=== PATIENT | female | born 1960 | race Caucasian/White ===

== ENCOUNTER 2016-11-30 22:20 | Emergency (ER) | payer SELFPAY ==
--- NOTE | 2016-12-01 00:13 | ED NURSING NOTES ---
Clinical Report - Nurses [facility] [address] [place] [address] 11/30/2016 22:34 Patient: CAROLINA KULKARNI TRIAGE Triage time 22:32 Nov 30 2016. Acuity: LEVEL 4. Chief Complaint: FALL while walking. 22:36 11/30/16. Alert. No acute distress. SEPSIS SCREEN: Sepsis Screen. Negative (no infection suspected/documented). SHERRI COMA SCORE: Sherri Coma Scale: 15- eyes open spontaneously (4); best verbal response- oriented x 4 (5); best motor response- obeys commands (6). --22:36 Susy Lopez 22:36 11/30/16. BP: 115/86. HR: 91. RR: 18. O2 saturation: 95%. Temp: 97.8 F. Pain level now 0/10. --22:36 Susy Lopez. Weight: 57.1 kg stated. Height/Length: 66 inches Per Patient. BMI: 20.3. --22:34 Susy Lopez. Medications ALPRAZolam Oral. --22:35 Susy Lopez Levothyroxine Sodium Oral. --22:35 Susy Lopez. Medication/allergy information source: EMS. --22:36 Susy Lopez. Allergies None. --22:35 Susy Lopez. History Arrived by EMS. Historian: EMS and patient. Unaccompanied. Location of injuries: head. This occurred just prior to arrival. ( Pt stumbled and fell, hit head.). The patient has had trouble walking. No loss of consciousness. No alteration in mental status, dizziness, neck pain, extremity pain or back pain. No limited ROM present or difficulty breathing. Treatment STABLE CLEANER: See EMS report. EMS treatment STABLE CLEANER verbally communicated. Hard c-collar applied. Trauma activation: Pre-hospital notification of patient arrival was received. PAST MEDICAL HX: Tetanus status: up-to-date. Immunizations: up-to-date. SOCIAL HX: Heavy tobacco smoker (cigarette)- 1-2 packs per day. Alcohol use; consumes three beers a week. No drug use. NUTRITIONAL RISK ASSESSMENT: The nutritional risk assessment revealed no deficiencies. FUNCTIONAL ASSESSMENT: Functional assessment: no impairments noted. LEARNING NEEDS ASSESSMENT: The learning needs assessment revealed no barriers. FALL RISK ASSESSMENT: Fall risk assessment completed. Risk factors identified include patient history of fall. Fall interventions initiated. Patient placed on stretcher. Side rails up x2. Call light in reach of patient. Instructed not to get up without assistance. SKIN INTEGRITY ASSESSMENT: Skin integrity risk assessment completed. No skin integrity risk identified. --22:36 Susy Lopez. PROBLEMS: Hypothyroidism. Anxiety Reaction. --22:36 Susy Lopez. Assessment The patient states feels the same. --22:36 Susy Lopez. Interventions ID band on patient. --22:36 Susy Lopez. PHYSICAL ASSESSMENT 22:37 11/30/16. To room via stretcher. GENERAL / NEURO / PSYCH: Alert. Oriented X 4. Appears in no acute distress. HEENT: Pupils equal, round and reactive to light. Head non-tender. RESPIRATORY: Respirations not labored. Chest nontender. CVS: Pulses within normal limits. Capillary refill less than 2 seconds. GI / : Abdomen soft and nontender. EXTREMITIES: Extremities exhibit normal ROM. Neuro-vascular status intact to the extremity. SKIN: Skin intact. Skin is warm and dry. --22:37 Susy Lopez. NURSING PROGRESS NOTES 22:37 11/30/16. The plan of care for this patient has been created. C-collar applied. Reassurance given. Two patient identifiers checked. Call light placed in reach. Side rails up x 1. Bed placed in lowest position. Brakes of bed on. Patient ready for evaluation- chart flagged and ED physician notified. --22:37 Susy Lopez 22:47 11/30/16. Care transferred and report given (MISSY Brar). --22:47 Susy Lopez Wound cleansed with sterile water (7124). --23:55 Yumiko Kerr. DISPOSITION / DISCHARGE Condition at departure: improved. No learning barriers present. Discharge instructions provided and reviewed with the patient and spouse and the patient left prior to discharge education being provided. Treatments reviewed. Reviewed referral to a primary care physician for followup. Patient verbalized understanding. Written instructions provided in Slovak. The patient was discharged home and accompanied by spouse. She left the Emergency Department ambulatory and via private vehicle. Spouse driving. --00:28 Riley Billings R.N. 00:26 12/01/16. BP: 117/78. HR: 79. RR: 16. O2 saturation: 100%. Temp: deferred. Pain level now: 0/10. --00:28 Riley Billings R.N. Locked/Released at 12/01/2016 0:29 by Riley Billings R.N.
--- NOTE | 2016-12-01 00:13 | ED ORDER SUMMARY ---
..... Patient: CAROLINA KULKARNI OrderSheet [facility] VisitID: [id number] [address] [place] [address] 56y, F Registration Date/Time: 11/30/2016 ORDER SHEET Weight: 57.1 kg (stated) Allergies: None GENERAL ORDERS: Cervical Spine 2 or 3V Urgent (23:12 11/30/2016 Ann ANAND) (Ack 23:23 Andres) (0:05 RFay) - (clean wound and remove hair to fully visualize.) (23:17 11/30/2016 Ann ANAND) (Ack 23:35 Andres) (23:54 Lawekcarlos) MEDICATION ORDERS: IV FLUIDS: ORDER SHEET NOTES: [Electronically signed by Riley Billings R.N. (00:29 12/01/2016)] [Electronically signed by Naga Goetz MD (11:03 12/13/2016)] [Electronically locked/signed by Riley Billings R.N. (00:29 12/01/2016)]
--- NOTE | 2016-12-01 00:13 | ED NURSING NOTES ---
Clinical Report - Nurses [facility] [address] [place] [address] 11/30/2016 22:34 Patient: CAROLINA KULKARNI TRIAGE Triage time 22:32 Nov 30 2016. Acuity: LEVEL 4. Chief Complaint: FALL while walking. 22:36 11/30/16. Alert. No acute distress. SEPSIS SCREEN: Sepsis Screen. Negative (no infection suspected/documented). SHERRI COMA SCORE: Sherri Coma Scale: 15- eyes open spontaneously (4); best verbal response- oriented x 4 (5); best motor response- obeys commands (6). --22:36 Susy Lopez 22:36 11/30/16. BP: 115/86. HR: 91. RR: 18. O2 saturation: 95%. Temp: 97.8 F. Pain level now 0/10. --22:36 Susy Lopez. Weight: 57.1 kg stated. Height/Length: 66 inches Per Patient. BMI: 20.3. --22:34 Susy Lopez. Medications ALPRAZolam Oral. --22:35 Susy Lopez Levothyroxine Sodium Oral. --22:35 Susy Lopez. Medication/allergy information source: EMS. --22:36 Susy Lopez. Allergies None. --22:35 Susy Lopez. History Arrived by EMS. Historian: EMS and patient. Unaccompanied. Location of injuries: head. This occurred just prior to arrival. ( Pt stumbled and fell, hit head.). The patient has had trouble walking. No loss of consciousness. No alteration in mental status, dizziness, neck pain, extremity pain or back pain. No limited ROM present or difficulty breathing. Treatment ENVIRONMENTAL SERVICES MANAGER: See EMS report. EMS treatment ENVIRONMENTAL SERVICES MANAGER verbally communicated. Hard c-collar applied. Trauma activation: Pre-hospital notification of patient arrival was received. PAST MEDICAL HX: Tetanus status: up-to-date. Immunizations: up-to-date. SOCIAL HX: Heavy tobacco smoker (cigarette)- 1-2 packs per day. Alcohol use; consumes three beers a week. No drug use. NUTRITIONAL RISK ASSESSMENT: The nutritional risk assessment revealed no deficiencies. FUNCTIONAL ASSESSMENT: Functional assessment: no impairments noted. LEARNING NEEDS ASSESSMENT: The learning needs assessment revealed no barriers. FALL RISK ASSESSMENT: Fall risk assessment completed. Risk factors identified include patient history of fall. Fall interventions initiated. Patient placed on stretcher. Side rails up x2. Call light in reach of patient. Instructed not to get up without assistance. SKIN INTEGRITY ASSESSMENT: Skin integrity risk assessment completed. No skin integrity risk identified. --22:36 Susy Lopez. PROBLEMS: Hypothyroidism. Anxiety Reaction. --22:36 Susy Lopez. Assessment The patient states feels the same. --22:36 Susy Lopez. Interventions ID band on patient. --22:36 Susy Lopez. PHYSICAL ASSESSMENT 22:37 11/30/16. To room via stretcher. GENERAL / NEURO / PSYCH: Alert. Oriented X 4. Appears in no acute distress. HEENT: Pupils equal, round and reactive to light. Head non-tender. RESPIRATORY: Respirations not labored. Chest nontender. CVS: Pulses within normal limits. Capillary refill less than 2 seconds. GI / : Abdomen soft and nontender. EXTREMITIES: Extremities exhibit normal ROM. Neuro-vascular status intact to the extremity. SKIN: Skin intact. Skin is warm and dry. --22:37 Susy Lopez. NURSING PROGRESS NOTES 22:37 11/30/16. The plan of care for this patient has been created. C-collar applied. Reassurance given. Two patient identifiers checked. Call light placed in reach. Side rails up x 1. Bed placed in lowest position. Brakes of bed on. Patient ready for evaluation- chart flagged and ED physician notified. --22:37 Susy Lopez 22:47 11/30/16. Care transferred and report given (MISSY Brar). --22:47 Susy Lopez Wound cleansed with sterile water (0418). --23:55 Yumiko Kerr. DISPOSITION / DISCHARGE Condition at departure: improved. No learning barriers present. Discharge instructions provided and reviewed with the patient and spouse and the patient left prior to discharge education being provided. Treatments reviewed. Reviewed referral to a primary care physician for followup. Patient verbalized understanding. Written instructions provided in Tunisian. The patient was discharged home and accompanied by spouse. She left the Emergency Department ambulatory and via private vehicle. Spouse driving. --00:28 Riley Billings R.N. 00:26 12/01/16. BP: 117/78. HR: 79. RR: 16. O2 saturation: 100%. Temp: deferred. Pain level now: 0/10. --00:28 Riley Billings R.N. Locked/Released at 12/01/2016 0:29 by Riley Billings R.N.
--- NOTE | 2016-12-01 00:13 | ED ORDER SUMMARY ---
..... Patient: CAROLINA KULKARNI OrderSheet [facility] VisitID: [id number] [address] [place] [address] 56y, F Registration Date/Time: 11/30/2016 ORDER SHEET Weight: 57.1 kg (stated) Allergies: None GENERAL ORDERS: Cervical Spine 2 or 3V Urgent (23:12 11/30/2016 Ann ANAND) (Ack 23:23 Andres) (0:05 RFay) - (clean wound and remove hair to fully visualize.) (23:17 11/30/2016 Ann ANAND) (Ack 23:35 Andres) (23:54 Lawekcarlos) MEDICATION ORDERS: IV FLUIDS: ORDER SHEET NOTES: [Electronically signed by Riley Billings R.N. (00:29 12/01/2016)] [Electronically signed by Naga Goetz MD (11:03 12/13/2016)] [Electronically locked/signed by Riley Billings R.N. (00:29 12/01/2016)]
--- NOTE | 2016-12-01 00:13 | ED CLINICAL REPORT ---
Clinical Report - Physicians/Mid Levels [facility] [address] [place] [place] [address] 11/30/2016 22:34 [id number] Time Seen: 22:47 Nov 30 2016. Arrived- By private vehicle. Historian- patient. HISTORY OF PRESENT ILLNESS Location of injuries- head. Chief Complaint: INJURY TO HEAD. The injury occurred just prior to arrival. Fell. Occurred at home. ( This occurred just prior to arrival. ( Pt stumbled and fell, hit head.). Has been drinking alcohol.). The patient complains of mild pain. The patient sustained a blow to the head. No neck pain or loss of consciousness. Not dazed. REVIEW OF SYSTEMS No numbness, loss of vision, chest pain, difficulty breathing or weakness. No headache, nausea, abdominal pain, fever or vomiting. She sustained skin laceration but has no pain on weight bearing. All systems otherwise negative, except as recorded above. PAST HISTORY See nurses notes. Medications: Levothyroxine Sodium Oral. ALPRAZolam Oral. Allergies: None. SOCIAL HISTORY Heavy tobacco smoker (cigarette)- 1-2 packs per day. Regular alcohol use. No drug use. ADDITIONAL NOTES The nursing notes have been reviewed. PHYSICAL EXAM Vital Signs: 11/30/2016 22:36 BP: 115/86. HR: 91. RR: 18. O2 saturation: 95%. Temp: 97.8 F. Appearance: Alert. No acute distress. Head: Vertex: abrasion, mild tenderness and swelling and subcutaneous laceration of the posterior aspect of the vertex. SEE LACERATION PROCEDURE NOTE. No deformity. Eyes: Pupils equal, round and reactive to light. EOM intact. ENT: No dental injury. Pharynx normal. Neck: Painless ROM. Non-tender. CVS: Heart sounds normal. Pulses normal. Respiratory: Breath sounds normal. Chest nontender. Abdomen: No visible injury. Soft and nontender. Back: No tenderness. ROM normal. Skin: Skin warm. Normal skin color. Extremities: Normal inspection. Extremities atraumatic. Neuro: Oriented X 3. No motor deficit. No sensory deficit. Reflexes normal. LABS, X-RAYS, AND EKG C-Spine X-rays: No acute findings. (DJD , no fx seen.). Views: 3 view C-spine series. Technique: good. The X-rays were independently viewed by me and interpreted contemporaneously by me. PROGRESS AND PROCEDURES Laceration Repair: Location: scalp. Length: 3 cm. Complexity: simple (local anesthesia used and stapled). Wound depth/shape- subcutaneous and linear. Wound is clean. Distal neuro/vascular/tendon status normal. Local anesthesia provided using 2% lidocaine with epi. Prepped with Hibiclens. Wound explored, cleansed and examined to the base in bloodless field extensively with normal saline. Closure of skin: (5 jesus manuel). Post-procedure: she is stable and there are no complications. Bleeding is controlled and neuro-vascular status is intact distal to the wound. Dressing applied. Tetanus immunization up-to-date. Estimated blood loss: 3 mL. Patient/family counseled. Disposition: Discharged. Condition: stable. CLINICAL IMPRESSION Single deep laceration to the scalp.No foreign body present. Fall on same level by tripping. Single contusion with soft tissue hematoma and abrasion to the scalp. INSTRUCTIONS Protect wound and keep wound area clean. Change dressing twice daily. Keep wounds dry. You may wash wounds briefly, then dry. Apply neosporin twice daily. Sutures should be removed in seven days. Warnings: HEAD INJURY PRECAUTIONS: An observer must check on the patient every 4 hours for the next 24 hours to confirm that the patient responds as expected, is not confused, has no new weakness or numbness, and has no other problems. Tetanus shot not given. GENERAL WARNINGS: Return or contact your physician immediately if your condition worsens or changes unexpectedly, if not improving as expected, or if other problems arise. Your Current Medications: CONTINUE TAKING THE FOLLOWING MEDICATIONS: ALPRAZolam Oral. Levothyroxine Sodium Oral. OTC Medications: Acetaminophen (available over the counter): take according to label instructions. Follow-up: Follow up with your doctor in one week. Call for the next available appointment. Understanding of the discharge instructions verbalized by patient. Discharge instructions reviewed with and understanding was verbalized by spouse. (Electronically signed by Naga Goetz MD 12/13/2016 11:03)
--- NOTE | 2016-12-01 05:05 | DIAGNOSTIC IMAGING REPORT ---
PROCEDURE: XR CERVICAL SPINE 2 OR 3 VIEW INDICATION: NECK TRAUMA/INJURY TECHNIQUE: Three views. COMPARISON: None. FINDINGS: Overlying external densities obscures some of the detail (cervical collar). There is a mild dextroscoliosis of the cervical spine with straightening of the cervical lordosis. There is moderate disc space narrowing at C4-5 with marked disc space narrowing at C6-7. There are moderate degenerate changes of the facet joints. No evidence of an acute process or fracture. IMPRESSION: 1. Moderate degenerative changes of the cervical spine. 2. Mild dextroscoliosis with straightening of cervical lordosis may be a reflection of cervical spasm. 3. No evidence of fracture.
--- NOTE | 2016-12-13 11:03 | ED DISCHARGE INSTRUCTIONS ---
Patient: CAROLINA KULKARNI General Instructions [facility] VisitID: [id number] [place] [address] 56y, F Registration Date/Time: 11/30/2016 Single deep laceration to the scalp.No foreign body present. Fall on same level by tripping. Single contusion with soft tissue hematoma and abrasion to the scalp. INSTRUCTIONS Protect wound and keep wound area clean. Change dressing twice daily. Keep wounds dry. You may wash wounds briefly, then dry. Apply neosporin twice daily. Sutures should be removed in seven days. Warnings: HEAD INJURY PRECAUTIONS: An observer must check on the patient every 4 hours for the next 24 hours to confirm that the patient responds as expected, is not confused, has no new weakness or numbness, and has no other problems. Tetanus shot not given. GENERAL WARNINGS: Return or contact your physician immediately if your condition worsens or changes unexpectedly, if not improving as expected, or if other problems arise. Your Current Medications: CONTINUE TAKING THE FOLLOWING MEDICATIONS: ALPRAZolam Oral. Levothyroxine Sodium Oral. OTC Medications: Acetaminophen (available over the counter): take according to label instructions. Follow-up: Follow up with your doctor in one week. Call for the next available appointment. Understanding of the discharge instructions verbalized by patient. Discharge instructions reviewed with and understanding was verbalized by spouse. ADDITIONAL INFORMATION Mechanical Fall You have had a fall today. It appears that the cause is mechanical. That means that you slipped, tripped or lost your balance. If your fall had been due to fainting or a seizure, further tests would be required. Home Care: Rest today and resume your normal activities when you are feeling back to normal. If you were injured during the fall, follow the advice from your doctor regarding care of your injury. You may use acetaminophen (Tylenol) or ibuprofen (Motrin, Advil) to control pain, unless another pain medicine was prescribed. [NOTE: If you have chronic liver or kidney disease or ever had a stomach ulcer or GI bleeding, talk with your doctor before using these medicines.] Fall Prevention: Was there anything that caused your fall that can be fixed, removed, or replaced? Make your home safe by keeping walkways clear of objects you may trip over. Use non-slip pads under rugs. Do not walk in poorly lit areas. Do not stand on chairs or wobbly ladders. Use caution when reaching overhead or looking upward. This position can cause a loss of balance. Be sure your shoes fit properly, have non-slip bottoms and are in good condition. Be cautious when going up and down curbs, and walking on uneven sidewalks. If your balance is poor, consider using a cane or walker. Stay as active as you can. Balance, flexibility, strength, and endurance all come from exercise. They all play a role in preventing falls. Follow Up with your doctor or as advised by our staff. Get Prompt Medical Attention if any of the following occur: Repeated mechanical falls, or unexplained falls Dizziness, fainting or seizure Severe headache Chest pain or shortness of breath Palpitations (very rapid or very slow or irregular heartbeat) Blood in vomit, stools (black or red color) Weakness of an arm or leg or one side of the face Difficulty with speech or vision Laceration, Scalp (Sutures Or [place]) A laceration is a cut through the skin. This will require stitches (sutures) or justin if it is deep. Home care The following guidelines will help you care for your laceration at home: During the first two days you may carefully rinse your hair in the shower to remove blood, glass or dirt particles. After two days you may shower and shampoo your hair normally. Have someone help you clean your wound every day: In the shower, wash the area with soap and water. Use a wet cotton swab to loosen and remove any blood or crust that forms. After cleaning, keep the wound clean and dry. Talk with your doctor before applying any antibiotic ointment to the wound. Reapply a fresh bandage. Do not put your head under water (no swimming) until the stitches or justin have been removed. The doctor may prescribe an antibiotic cream or ointment to prevent infection. Do not stop taking this medication until you have finished the prescribed course or the doctor tells you to stop. The doctor may also prescribe medications for pain. Follow the doctors instructions for taking these medications. If you have chronic liver or kidney disease or ever had a stomach ulcer or GI bleeding, talk with your doctor before using these medicines. Follow-up care Follow up with your health care provider. Most scalp wounds heal within seven days. However, an infection can sometimes occur. Check the wound daily for the warning signs listed below. Stitches or justin should be removed from the scalp in about 57 days. When to seek medical care Get prompt medical attention if any of these occur: Increasing pain in the wound Redness, swelling, or pus coming from the wound Fever of 100.4F (38C) or higher, or as directed by your health care provider If stitches or justin come apart or fall out before your next appointment If the wound edges re-open Bleeding not controlled by direct pressure Laceration (All Closures) Alaceration is a cut through the skin. This will usually require stitches (sutures) or justin if it is deep. Minor cuts may be treated with a surgical tape closure orskin glue. Home care The following guidelines will help you care for your laceration at home: Extremity, face, or trunk wounds Keep the wound clean and dry. If a bandage was applied and it becomes wet or dirty, replace it. Otherwise, leave it in place for the first 24 hours. If stitches or justin were used, clean the wound daily. After removing the bandage, wash the area with soap and water. Use a wet cotton swab to loosen and remove any blood or crust that forms. The doctor may prescribe an antibiotic cream or ointment to prevent infection. Do not stop taking this medication until you have finished the prescribed course or the doctor tells you to stop. The doctor may also prescribe medications for pain. Follow the doctors instructions for taking these medications. You may remove the bandage to shower as usual after the first 24 hours, but do not soak the area in water (no swimming) until the stitches or justin are removed. If surgical tape was used, keep the area clean and dry. If it becomes wet, blot it dry with a towel. If skin glue was used, do not scratch, rub, or pick at the adhesive film. Do not place tape directly over the film. Do not apply liquid, ointment, or creams to the wound while the film is in place. Do not clean the wound with peroxide and do not apply ointments. Avoid activities that cause heavy sweating until the film has fallen off. Protect the wound from prolonged exposure to sunlight or tanning lamps. You may shower as usual but do not soak the wound in water (no baths or swimming). The film will fall off by itself in 510 days. Scalp wounds During the first two days, you may carefully rinse your hair in the shower to remove blood, glass or dirt particles. After two days, you may shower and shampoo your hair normally. Do not soak your scalp in the tub or go swimming until the stitches or justin have been removed. Talk with your doctor before applying any antibiotic ointment to the wound. Mouth wounds Eat soft foods to reduce pain. If the cut is inside of your mouth, clean by rinsing after each meal and at bedtime with a mixture of equal parts water and hydrogen peroxide (do not swallow!). Or, you can use a cotton swab to directly apply hydrogen peroxide onto the cut. Mouth wounds can be painful when eating. You may use an [id number] local numbing solution for pain relief. If this is not available, you may use any numbing solution for teething babies. You may apply this directly to the sores with a cotton-tip swab or with your finger. Follow-up care Follow up with your health care provider. Most skin wounds heal within ten days. Mouth and facial wounds heal within five days. However, even with proper treatment, a wound infection may sometimes occur. Therefore, you should check the wound daily for signs of infection listed below. Stitches should be removed from the face within five days; stitches and justin should be removed from other parts of the body within 714 days. If dissolving stitches were used in the mouth, these will fall out or dissolve without the need for removal. If tape closures were used, remove them yourself if they have not fallen off after 7 days. Ifskin glue was used, the film will fall off by itself in 510 days. When to seek medical care Get prompt medical attention if any of these occur: Bleeding not controlled by direct pressure Signs of infection, including increasing pain in the wound, increasing wound redness or swelling, or pus coming from the wound Fever of 100.4F (38C) or higher, or as directed by your health care provider Stitches or justin come apart or fall out or surgical tape falls off before 7 days Wound edges re-open Laceration, Scalp (Sutures Or [place]) A laceration is a cut through the skin. This will require stitches (sutures) or justin if it is deep. Home care The following guidelines will help you care for your laceration at home: During the first two days you may carefully rinse your hair in the shower to remove blood, glass or dirt particles. After two days you may shower and shampoo your hair normally. Have someone help you clean your wound every day: In the shower, wash the area with soap and water. Use a wet cotton swab to loosen and remove any blood or crust that forms. After cleaning, keep the wound clean and dry. Talk with your doctor before applying any antibiotic ointment to the wound. Reapply a fresh bandage. Do not put your head under water (no swimming) until the stitches or justin have been removed. The doctor may prescribe an antibiotic cream or ointment to prevent infection. Do not stop taking this medication until you have finished the prescribed course or the doctor tells you to stop. The doctor may also prescribe medications for pain. Follow the doctors instructions for taking these medications. If you have chronic liver or kidney disease or ever had a stomach ulcer or GI bleeding, talk with your doctor before using these medicines. Follow-up care Follow up with your health care provider. Most scalp wounds heal within seven days. However, an infection can sometimes occur. Check the wound daily for the warning signs listed below. Stitches or justin should be removed from the scalp in about 57 days. When to seek medical care Get prompt medical attention if any of these occur: Increasing pain in the wound Redness, swelling, or pus coming from the wound Fever of 100.4F (38C) or higher, or as directed by your health care provider If stitches or justin come apart or fall out before your next appointment If the wound edges re-open Bleeding not controlled by direct pressure Head Injury, No Wake-Up (Adult) You have had a head injury. It does not appear serious at this time. Symptoms of a more serious problem (concussion, bruising, or bleeding in the brain) may appear later. Therefore, watch for the WARNING SIGNS listed below. Home Care: Your healthcare provider will tell you whether its okay to drive. If so, you can drive yourself home. For the next day or so, be careful when driving or using heavy machinery until you are sure you have no delayed symptoms. During the next 24 hours someone must stay with you to check for the signs below. It is not necessary to stay awake or be awakened during the night. If you have swelling of the face or scalp, apply an ice pack (ice cubes in a plastic bag, wrapped in a towel) for 20 minutes. Do this every 1-2 hours until the swelling starts to go down. Do not use aspirin or ibuprofen (Motrin, Advil) after a head injury.You may use acetaminophen (Tylenol)to control pain, unless another pain medicine was prescribed. [NOTE: If you have chronic liver or kidney disease or ever had a stomach ulcer or GI bleeding, talk with your doctor before using these medicines.] For the next 24 hours: Do not take alcohol, sedatives or medicines that make you sleepy. Avoid strenuous activities. No lifting or straining. If you have had any symptoms of a concussion today (nausea, vomiting, dizziness, confusion, headache, memory loss or if you were knocked out), do not return to sports or any activity that could result in another head injury until all symptoms are gone and you have been cleared by your doctor. A second head injury before fully recovering from the first one can lead to serious brain injury. Follow Up with your doctor if symptoms are not improving after 24 hours, or as directed. [NOTE: A radiologist will review any X-rays or CT scans that were taken. We will notify you of any new findings that may affect your care.] Get Prompt Medical Attention if any of the followingWARNING SIGNS occur: Repeated vomiting Severe or worsening headache or dizziness Unusual drowsiness, or unable to awaken as usual Confusion or change in behavior or speech, memory loss, blurred vision Convulsion (seizure) Increasing scalp or face swelling Redness, warmth or pus from the swollen area Fluid drainage or bleeding from the nose or ears You have been given the following additional information: Fall, Mechanical Laceration, Scalp Laceration, All Laceration, Scalp HEAD INJURY, No Wake-Up (Adult) (Electronically signed by Naga Goetz MD 12/13/2016 11:03)
--- NOTE | 2016-12-13 11:03 | ED MED RECONCILIATION SUMMARY ---
Patient: CAROLINA KULKARNI Medication Reconciliation Report [facility] VisitID: [id number] [address] [place] [address] 56y, F Registration Date/Time: 11/30/2016 Weight: 57.1 kg Height/Length: 66 in. BMI: 20.3 ALLERGIES: None The patient's Home Medications are listed below: CONTINUE TAKING THE FOLLOWING MEDICATIONS: ALPRAZolam Oral Levothyroxine Sodium Oral The source(s) of the original Home Medication information: EMS The following Medications were given to the patient in the Emergency Department: None. The following Medications were prescribed to the patient: Acetaminophen (available over the counter): take according to label instructions. -- Naga Goetz MD
--- NOTE | 2016-12-13 11:03 | ED MED RECONCILIATION SUMMARY ---
Patient: CAROLINA KULKARNI Medication Reconciliation Report [facility] VisitID: [id number] [address] [place] [address] 56y, F Registration Date/Time: 11/30/2016 Weight: 57.1 kg Height/Length: 66 in. BMI: 20.3 ALLERGIES: None The patient's Home Medications are listed below: CONTINUE TAKING THE FOLLOWING MEDICATIONS: ALPRAZolam Oral Levothyroxine Sodium Oral The source(s) of the original Home Medication information: EMS The following Medications were given to the patient in the Emergency Department: None. The following Medications were prescribed to the patient: Acetaminophen (available over the counter): take according to label instructions. -- Naga Goetz MD
--- NOTE | 2016-12-13 11:03 | ED MAR SUMMARY ---
..... Medication Administration Record [facility] [address] [place], [place] [id number] Patient: CAROLINA KULKARNI Visit ID: [id number] 56y, F Weight: 57.1 kg Height/Length: 66 in BMI: 20.3 ALLERGIES: None
--- NOTE | 2016-12-13 11:03 | ED MAR SUMMARY ---
..... Medication Administration Record [facility] [address] [place], [place] [id number] Patient: CAROILNA KULKARNI Visit ID: [id number] 56y, F Weight: 57.1 kg Height/Length: 66 in BMI: 20.3 ALLERGIES: None
== END 2016-12-01 00:29 | disposition home or self-care (01) ==
LOC: ED SRH 22:20
PROC: 0JQ00ZZ Repair Scalp Subcutaneous Tissue and Fascia, Open Approach (ICD-10-PCS; principal; 2016-12-01)
DX: S01.01XA Laceration without foreign body of scalp, initial encounter (principal); W01.0XXA Fall on same level from slipping, tripping and stumbling without subsequent striking against object, initial encounter; Y92.009 Unspecified place in unspecified non-institutional (private) residence as the place of occurrence of the external cause; Y99.9 Unspecified external cause status; F17.210 Nicotine dependence, cigarettes, uncomplicated